=== PATIENT | male | born 1975 | race Caucasian/White ===

== ENCOUNTER 2024-03-12 07:22 | Observation (INO) | payer OTHER ==
[2024-03-12] VITALS (7 sets, daily range): BP systolic 148–173; BP diastolic 94–106; PULSE 71–92; TEMP 97.8–98.2
[~2024-03-12] VITALS: Ht 172.7 cm; Wt 79.8 kg
[2024-03-12] MEDS ORDERED: Morphine 4 MG/ML VIAL IV PRN ×2 (07:45→14:45)
[2024-03-12 07:52] LABS: BASO % 0.6 % (0.0-2.0); EOS # 0.1 K/mm3 (0.0-0.7); EOS % 1.6 % (0.0-4.0); GRAN # 3.6 K/mm3 (1.4-6.5); GRAN % 50.1 % (42.2-75.2); HEMATOCRIT 47.5 % (42.0-52.0); HEMOGLOBIN 16.4 g/dl (13.5-18.0); LYMPH # 2.8 K/mm3 (1.2-3.4); LYMPH % 39.1 % (20.0-51.0); MEAN CELL VOLUME 92 fl (80.0-100.0); MEAN CORPUSCULAR HEMOGLOBIN 32 pg (27-31); MEAN CORPUSCULAR HGB CONC 35 g/dl (33.0-37.0); MEAN PLATELET VOLUME 9.3 fl (7.4-10.4); MONO # 0.6 K/mm3 (0.1-0.6); MONO % 8.5 % (1.7-9.3); PLATELET COUNT 314 K/mm3 (130-400); RED BLOOD COUNT 5.18 M/mm3 (4.20-5.60); REDCELL DISTRIBUTION WIDTH-CV 14.1 % (11.5-14.5)
[2024-03-12] MEDS ORDERED: Ondansetron 4 MG/2 ML VIAL IV ONE (08:00)
[2024-03-12] MEDS ORDERED: NS 500 ML IV ONE ×2 (08:00→08:45)
[2024-03-12 08:19] LABS: ALANINE AMINOTRANSFERASE 34 U/L (0-55); ALBUMIN 3.9 g/dL (3.5-5.0); ALKALINE PHOSPHATASE 73 U/L (40-150); ANION GAP 15 mmol/L (7-16); AST,SGOT 46 U/L (5-34); BILIRUBIN,TOTAL 0.4 mg/dL (0.2-1.2); BLOOD UREA NITROGEN 17 mg/dL (8-26); CALCIUM 10.8 mg/dL (8.4-10.2); CHLORIDE 99 mEq/L (98-107); CREATININE, serum 0.91 mg/dL (0.72-1.25); GLUCOSE 112 mg/dL (70-99); LIPASE 41 U/L (8-78); SODIUM 141 mEq/L (136-145)
[2024-03-12 08:26] LABS: POTASSIUM 2.9 mEq/L (3.5-4.5)
[2024-03-12 08:27] LABS: TROPONIN-I < 0.010 ng/mL (0.00-0.033)
[2024-03-12] MEDS ORDERED: Potassium Chloride 100 ML IV ONE (08:30)
[2024-03-12] MEDS ORDERED: Clopidogrel 300 MG DOSE (75 mg x 4 tabs) PO ONE (12:45)
[2024-03-12] MEDS ORDERED: Metoprolol Tartrate 25 MG TAB PO SCH (14:28)
[2024-03-12] MEDS ORDERED: Nicotine 21 MG DAILY PATCH TD PRN (14:30)
[2024-03-12] MEDS ORDERED: Mag/Al Hydrox/Simeth Susp 30 ML CUP PO PRN (14:30)
[2024-03-12] MEDS ORDERED: Magnes Hydrox (MOM) 80 MG/ML 30 ML CUP PO PRN (14:30)
[2024-03-12] MEDS ORDERED: Ondansetron 4 MG/2 ML VIAL IV PRN (14:30)
[2024-03-12] MEDS ORDERED: oxyCODONE 5 MG TAB PO PRN (14:45)
[2024-03-12] MEDS ORDERED: hydrALAZINE 10 MG TAB PO PRN (14:45)
[2024-03-12] MEDS ORDERED: Acetaminophen 500 MG TAB PO SCH (15:00)
[2024-03-12] MEDS ORDERED: Famotidine 20 MG TAB PO SCH (21:00)
[2024-03-12] MEDS ORDERED: Melatonin 3 MG TAB PO PRN (21:00)
[2024-03-12] MEDS ORDERED: Docusate Sodium 100 MG CAP PO SCH (21:00)
--- NOTE | 2024-03-12 23:04 | NUR ---
PT ALERT AND ORIENTED X4. VSS, WHEN DESCRIBING HIS CHEST PAIN HE SAYS ITS A BURNING FEELING THAT COMES ON SUDDENLY AND HE IS RATING HIS PAIN 7/10. ALL HS MEDS GIVEN AND SHIFT ASSESSMENT COMPLETE, PT IS AWARE OF NPO STATUS AFTER MN FOR PROCEDURES IN AM. MORPHINE IS HELPING RELIEVE CHEST PAIN. PT IS WANTING TO GO TO BED AT THIS TIME. CALL LIGHT WITHIN REACH, BED ALARM ENGAGED.
[2024-03-13] VITALS (7 sets, daily range): BP systolic 133–157; BP diastolic 84–88; PULSE 65–81; TEMP 97.8–98.2
[2024-03-13] MEDS ORDERED: Potassium Bicarbonate/Citrate 20 MEQ Effervescent TAB PO SCH (08:30)
[2024-03-13] MEDS ORDERED: *Potassium Replacement Protocol MC SCH (08:30)
[2024-03-13] MEDS ORDERED: Magnesium Sulfate 4 GM/50 ML IV SOLN IV ONE (08:30)
[2024-03-13] MEDS ORDERED: Clopidogrel 75 MG TAB PO SCH (09:00)
[2024-03-13] MEDS ORDERED: Magnesium Oxide 400 MG TAB PO SCH (09:00)
[2024-03-13] MEDS ORDERED: MAG-OX 400400 MG/TAB PO (12:31)
[2024-03-13] MEDS ORDERED: ASPIRIN E.C. 8181 MG PO (12:31)
--- NOTE | 2024-03-13 12:35 | NUR ---
Palliative Care Physician met with patient to discuss discharge planning. Patient's , Lauren (ph#[phone]) is at bedside. Patient had his ex-, Yuko listed in his EMR and SW updated this with admission to reflect Lauren instead of Yuko. Patient lives in [place] and does not have a primary care provider, however stated he is working on this. SW provided patient with a list of providers in [place] for patient to review. Patient does not currenly use any DME and is independent with [employer]. Patient is employed at [employer] in [place], [place]. 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 Patient does not have DPOA-HC but was interested in the form, which SW provided. Patient plans to return home at time of discharge. Discharge Plan: Home
[2024-03-13] MEDS ORDERED: TOPROL XL 25MG25 MG PO (12:43)
[2024-03-13] MEDS ORDERED: ROXICODONE 55 MG/TAB PO (13:57)
--- NOTE | 2024-03-13 14:50 | NUR ---
Discharge instructions reviewed with patient- patient verbalizes understanding. Tele d/c'd. INT to LAC d/c'd with cath tip intact. Pt escorted via w/c to private vehicle and discharged home with spouse.
--- NOTE | 2024-03-13 16:37 | NUR ---
Assessment completed. A/O x4. Denies nausea. Morphine administered for c/o left chest pain. at bedside.
== END 2024-03-13 14:50 | disposition home or self-care (01) ==
LOC: COL.ER 07:22 → MEDICAL 12:40
PROVIDERS: Emergency Medicine; ADMIT Internal Medicine
DX: R07.89 Other chest pain (principal); R03.0 Elevated blood-pressure reading, without diagnosis of hypertension; E87.6 Hypokalemia; E83.42 Hypomagnesemia; E83.52 Hypercalcemia; F17.200 Nicotine dependence, unspecified, uncomplicated
CPT/HCPCS: G0378; J1650; J2270; J2405; J3475; J3480; J7040